=== PATIENT | male | born 1965 | race Caucasian/White ===

== ENCOUNTER → 2018-03-27 | Outpatient (CLI) | payer OTHER ==
[~2018-03-27] MED LIST: ALPRAZOLAM0.5 MG PO; AMPHETAMINE SALT5 MG PO; ASPIR 8181 M1 PO; ASPIRIN325 MG PO; ERGOCALCIF50000 UNIT PO; ESOMEPRAZOLE MA40 MG PO; IBUPROFEN800 MG PO; LISINOPRIL10 MG PO; NICOTINE PATCH1 EAC2 TD; OXYCODONE HCL10 MG PO; VYTORIN 10/21 TABLET PO; XANAX0.5 MG PO
== END | disposition home or self-care (01) ==
LOC: CDC 14:30
DX: Z01.810 Encounter for preprocedural cardiovascular examination (principal); M19.132 Post-traumatic osteoarthritis, left wrist; M25.732 Osteophyte, left wrist; M25.532 Pain in left wrist; I51.7 Cardiomegaly; R94.31 Abnormal electrocardiogram [ECG] [EKG]
CPT/HCPCS: 93000